=== PATIENT | female | born 2000 | race African-American/Black ===

== ENCOUNTER 2020-11-24 18:52 | Emergency (ER) | payer MEDICAID ==
[~2020-11-24] VITALS: Ht 162.6 cm; Wt 72.6 kg
[2020-11-24 21:10] LABS: Urine Bacteria FEW /hpf (None Seen); Urine Blood Negative /uL (Negative); Urine Mucus FEW (None Seen); Urine Specific Gravity 1.022 (1.001-1.035); Urine WBC 15 /hpf (0 - 5)
[2020-11-24 22:39] VITALS: BP 133/84
== END 2020-11-24 22:47 | disposition home or self-care (01) ==
LOC: ER 18:57
DX: N39.0 Urinary tract infection, site not specified (principal); N89.8 Other specified noninflammatory disorders of vagina; Z32.02 Encounter for pregnancy test, result negative
CPT/HCPCS: 81001; 81025